=== PATIENT | male | born 1960 | race African-American/Black ===

== ENCOUNTER 2016-10-07 15:23 | Emergency (ER) | payer OTHER ==
[2016-10-07] MEDS ORDERED: Lorazepam 2 MG/ML VIAL ONE (15:48)
== END 2016-10-07 16:45 | disposition home or self-care (01) ==
LOC: NAV ERS 15:23
DX: F41.9 Anxiety disorder, unspecified (principal); I10 Essential (primary) hypertension; Z79.899 Other long term (current) drug therapy
CPT/HCPCS: 93005; 96372; J2060

== ENCOUNTER 2017-01-04 21:20 | Emergency (ER) | payer OTHER ==
[2017-01-04] MEDS ORDERED: Orphenadrine Citrate 60 MG/2 ML VIAL ONE (21:48)
== END 2017-01-04 22:05 | disposition home or self-care (01) ==
LOC: NAV ERS 21:20
DX: F41.9 Anxiety disorder, unspecified (principal); F13.20 Sedative, hypnotic or anxiolytic dependence, uncomplicated; I10 Essential (primary) hypertension; Z79.899 Other long term (current) drug therapy
CPT/HCPCS: 96372; J2360